=== PATIENT | female | born 1980 | race Caucasian/White ===

== ENCOUNTER 2016-11-09 08:45 | Emergency (ER) | payer BC ==
[~2016-11-09] VITALS: Ht 162.6 cm; Wt 79.0 kg
[~2016-11-09 08:45] MED LIST: LORA10CA2 PO; PRENTAB26 PO
[2016-11-09 08:47] VITALS: TEMP 36.7; Ht 162.6 cm; Wt 79.0 kg
[2016-11-09] MEDS ORDERED: IBUP200C14 PO (09:10)
[2016-11-09] MEDS ORDERED: SODIUM CHLORIDE 0.9% 1000ML 1,000 ML IV STA (09:15)
[2016-11-09] MEDS ORDERED: MoRPHine SULFATE 4 MG/ML 1 ML CARP\\VIAL IV STA (09:15)
[2016-11-09] MEDS ORDERED: ONDANSETRON INJ 2 MG/ML 2 ML VIAL IV STA (09:15)
[2016-11-09 10:00] LABS: BASO % 0.3 %; BASO ABS # 0.02 K/uL (0-0.2); COMPLETE YES; EOS % 2.4 %; HEMATOCRIT 43.4 % (37-47); IG% 0.5 %; LYMPH ABS # 1.45 K/uL (1.2-3.4); MEAN CELL VOLUME 88.9 fL (80-100); MEAN CORPUSCULAR HEMOGLOBIN 29.1 pg (25-34); MEAN CORPUSCULAR HGB CONC 32.7 g/dl (32-36); MEAN PLATELET VOLUME 10.2 fL (7.4-10.4); NEUT % 69.8 %; PLATELET COUNT 276 K/uL (130-400); RED BLOOD COUNT 4.88 M/uL (4.2-5.4)
--- NOTE | 2016-11-09 10:22 | DIAGNOSTIC IMAGING REPORT ---
HEAD CT NONCONTRAST CT DOSE: 614.27 mGy.cm HISTORY: headache TECHNIQUE: Multiaxial CT images of the head were performed without the use of intravenous contrast. Automated exposure control was utilized for this study. Comparison: None. Findings: Fluid level with near complete opacification of the left maxillary sinus. Remaining paranasal sinuses and mastoid air cells are clear. The calvarium and skull base are intact. The ventricles and sulci are within normal limits. There is no mass, hematoma, midline shift, or acute infarct. Impression: No acute intracranial abnormality. Acute left maxillary sinusitis. Electronically signed by: Fer Estes M.D. 11/09/2016 10:20 AM Dictated Date/Time: 11/09/2016 10:18 AM
[2016-11-09 10:26] LABS: POTASSIUM 4.2 mmol/L (3.5-5.1)
[2016-11-09 10:30] LABS: THYROID STIMULATING HORMONE 1.09 uIu/ml (0.300-4.500)
[2016-11-09 10:31] LABS: BUN/CREATININE RATIO 22.7 (10-20); CALCIUM 8.9 mg/dl (8.5-10.1); CREATININE 0.62 mg/dl (0.60-1.20)
[2016-11-09] MEDS ORDERED: HYDR-5688 PO (11:21)
[2016-11-09] MEDS ORDERED: AMOX500C3 PO (11:22)
[2016-11-09 11:37] VITALS: BP 129/87; PULSE 68; O2SAT 100
--- NOTE | 2016-11-10 18:10 | EMERGENCY ROOM VISIT NOTE ---
History First contact with patient: 08:52 Chief Complaint: HEADACHE Stated Complaint: HEADACHE,VOMITING History of Present Illness The patient is a 35 year old female who presents to the Emergency Room with complaints of the worst headache of her life. She states she never used to get headaches. A few years ago she started developing mild headaches. She is now getting monthly headaches. Her headache this morning woke her from sleep around 645. She denies any numbness or tingling. No neck pain. No weakness in the extremities. There was no trauma to her head. She is mildly photophobic. She denies any phonophobia. She is nauseated and vomited once this morning. She does not take anything for her headaches. She has never seen neurology. She has never been diagnosed with migraines. She is currently in the third week of her menstrual cycle. No loss of balance. No change in vision, speech, or hearing. Her accompanies her today. Her headache location is similar to previous headaches and is right-sided, frontal and occipital. Review of Systems REVIEW OF SYSTEM: HEENT: No dizziness, visual problems, hearing loss, or tinnitus. There is no difficulty swallowing and no oral lesions are present. LYMPH: No adenopathy. PULMONARY: No cough, shortness of breath, sputum production or hemoptysis. CARDIOVASCULAR: No chest pain, palpitations, shortness of breath or peripheral edema. GASTROINTESTINAL: No diarrhea, constipation, nausea, vomiting, or abdominal pain. GENITOURINARY: No dysuria, frequency, urgency or nocturia. NEUROLOGIC: No weakness, muscle tenderness, epilepsy or history of neurological problems. No history of chronic headaches. MUSCULOSKELETAL: No history of joint tenderness/swelling. No history of arthritis or arthralgias. SKIN: No rashes or lesions. PSYCHIATRIC: No history of depression or mental illness. ENDOCRINE: No history of diabetes, thyroid disorders, or abnormal hair growth. Past Medical/Surgical History Previous surgeries: None. Medical history: Significant for previous headaches. Family History Noncontributory. Social History Smoking Status: Never Smoker Smokeless Tobacco Use: No Drug Use: none Marital Status: Housing Status: lives with family Occupation Status: employed Current/Historical Medications Scheduled Ibuprofen (Advil), 600 MG PO Q6H Multivit/Min/Iron/Fol Ac/Pren ( Vitamin), 1 TAB PO DAILY Scheduled PRN Hydrocodone/Acetaminophen 5MG/325MG (Union 5MG/325MG), 1-2 TABLET PO Q6 PRN for Pain Miscellaneous Medications Loratadine (Claritin), 10 MG PO Allergies Coded Allergies: No Known Drug Allergy (Verified Allergy, Unknown, `, 11/13/16) Penicillins (Unverified Allergy, Unknown, ., 11/12/16) Physical Exam Vital Signs Date Time Temp Pulse Resp B/P (MAP) Pulse Ox O2 Delivery O2 Flow Rate FiO2 11/09/16 11:37 68 18 129/87 100 11/09/16 10:17 72 18 121/83 99 Room Air 11/09/16 08:47 36.7 78 18 135/89 97 Room Air Pain Rating (0-10): 4.0 Physical Exam Gen.: Well-developed, well-nourished, young female in obvious discomfort. No acute distress. Laying on a bed. Alert and oriented. Skin: Skin:Warm and dry with good turgor. No rashes or lesions. No ecchymosis or erythema. The patient is not diaphoretic. No abrasions. HEENT: Normocephalic atraumatic. Eyes PERRLA, EOMI. No conjunctiva or scleral injection. Ears TMs intact bilaterally with good light reflexes. No erythema or bulging. No hemotympanum. Canals are patent. Nares patent bilaterally without turbinate enlargement. No significant drainage. No epistaxis. There is some discomfort with palpation over the right-sided facial features extending into the scalp. Oropharynx without erythema or exudate. Uvula midline, oral mucosa moist. No lesions present. Lymphatics are palpated without anterior or posterior chain enlargement or tenderness. Heart: Heart RRR. No MGR. Peripheral pulses are 2+. Lungs: Lungs are clear to auscultation. No crackles rhonchi or wheezing. Good air movement. The patient is able to take a deep breath. Abdomen: Abdomen was inspected, auscultated, and palpated. Bowel sounds present x 4. Soft, nontender to palpation. No hepato-splenomegaly. Musculoskeletal: No pain with palpation over the cervical spine. Gross motor function of the upper and lower extremities is intact and unremarkable. Neurologic: Cranial nerves II through XII are intact. Gross sensation is intact across the upper and lower extremities by soft touch. Medical Decision & Procedures ER Provider Diagnostic Interpretation: CT scan imaging of the head was obtained today. This was read by radiology as negative for intracranial bleed or mass. She does have left maxillary sinusitis. Laboratory Results 11/09/16 09:39 Red Blood Count 4.88, Mean Corpuscular Volume 88.9, Mean Corpuscular Hemoglobin 29.1, Mean Corpuscular Hemoglobin Concent 32.7, Mean Platelet Volume 10.2, Neutrophils (%) (Auto) 69.8, Lymphocytes (%) (Auto) 22.0, Monocytes (%) (Auto) 5.0, Eosinophils (%) (Auto) 2.4, Basophils (%) (Auto) 0.3, Neutrophils # (Auto) 4.61, Lymphocytes # (Auto) 1.45, Monocytes # (Auto) 0.33, Eosinophils # (Auto) 0.16, Basophils # (Auto) 0.02 11/09/16 09:39 Test 11/09/16 09:39 White Blood Count 6.60 K/uL (4.8-10.8) Red Blood Count 4.88 M/uL (4.2-5.4) Hemoglobin 14.2 g/dL (12.0-16.0) Hematocrit 43.4 % (37-47) Mean Corpuscular Volume 88.9 fL (80-100) Mean Corpuscular Hemoglobin 29.1 pg (25-34) Mean Corpuscular Hemoglobin Concent 32.7 g/dl (32-36) Platelet Count 276 K/uL (130-400) Mean Platelet Volume 10.2 fL (7.4-10.4) Neutrophils (%) (Auto) 69.8 % Lymphocytes (%) (Auto) 22.0 % Monocytes (%) (Auto) 5.0 % Eosinophils (%) (Auto) 2.4 % Basophils (%) (Auto) 0.3 % Neutrophils # (Auto) 4.61 K/uL (1.4-6.5) Lymphocytes # (Auto) 1.45 K/uL (1.2-3.4) Monocytes # (Auto) 0.33 K/uL (0.11-0.59) Eosinophils # (Auto) 0.16 K/uL (0-0.5) Basophils # (Auto) 0.02 K/uL (0-0.2) RDW Standard Deviation 39.7 fL (36.4-46.3) RDW Coefficient of Variation 12.5 % (11.5-14.5) Immature Granulocyte % (Auto) 0.5 % Immature Granulocyte # (Auto) 0.03 K/uL (0.00-0.02) Anion Gap 7.0 mmol/L (3-11) Est Creatinine Clear Calc Drug Dose 131.3 ml/min Estimated GFR () 137.3 Estimated GFR (Non- 118.5 BUN/Creatinine Ratio 22.7 (10-20) Calcium Level 8.9 mg/dl (8.5-10.1) Total Bilirubin 0.5 mg/dl (0.2-1) Aspartate Amino Transf (AST/SGOT) 11 U/L (15-37) Alanine Aminotransferase (ALT/SGPT) 24 U/L (12-78) Alkaline Phosphatase 41 U/L (45-117) Total Protein 8.0 gm/dl (6.4-8.2) Albumin 3.9 gm/dl (3.4-5.0) Globulin 4.1 gm/dl (2.5-4.0) Albumin/Globulin Ratio 1.0 (0.9-2) Thyroid Stimulating Hormone (TSH) 1.090 uIu/ml (0.300-4.500) CBC, chem panel, and TSH were obtained. They're all unremarkable. Medications Administered Medications (Trade) Dose Ordered Sig/Vale Route Start Time Stop Time Status Last Admin Dose Admin Sodium Chloride 1,000 ml @ 999 mls/hr Q1H1M STAT IV 11/09/16 09:15 11/09/16 10:15 DC 11/09/16 10:05 999 MLS/HR Ondansetron HCl (Zofran Inj) 4 mg NOW STAT IV 11/09/16 09:15 11/09/16 09:18 DC 11/09/16 10:05 4 MG Morphine Sulfate (MoRPHine SULFATE INJ) 4 mg NOW STAT IV 11/09/16 09:15 11/09/16 09:18 DC 11/09/16 10:06 4 MG 1 L normal sterile saline IV bolus, morphine 4 mg IV, Zofran 4 mg IV ED Course Patient and her were educated regarding today's findings. Conservative care measures were discussed. IV was established. Labs were obtained. CT scan imaging of the head was also obtained. This was negative for intracranial bleed or mass. Left maxillary sinusitis was noted.. Patient was given 1 L normal sterile saline IV bolus for hydration, as well as morphine 4 mg IV and Zofran 4 mg IV for her headache. It did temporarily improve her symptoms. Headache did return in a moderate fashion prior to the end of her ED visit. Option of spinal tap was discussed at length with the patient and her by me as well as Dr. Trevino. They elected to decline a tap. Importance of follow-up with neurology was discussed. She should also return to the ED urgently for any worsening of symptoms, fevers, neck pain, or confusion. Patient was prescribed amoxicillin 500 mg 3 times a day 10 days for sinusitis. She listed a allergy to penicillin, but when questioned further she states it just makes her feel unusual. There is no rash, perioral swelling, or anaphylactic type reaction. I did ask her this 3 times separately throughout her visit. She reiterated the same description each time. She was also prescribed Union 5 mg to be used every 6 hours as needed for severe pain. Driving precautions were given. Patient was seen in conjunction with Dr. Trevino, who also evaluated the patient and concurred with today's diagnosis and treatment plan. Medical Decision Possibility of tension headache, cluster headache, migraine headache, intracranial bleed, and meningitis were considered, among others Impression Primary Impression: Sinusitis, acute Additional Impression: Headache Departure Information Dispostion Home / Self-Care Condition FAIR Prescriptions Hydrocodone/Acetaminophen 5MG/325MG (Union 5MG/325MG) Tab 1-2 TABLET PO Q6 Y for Pain, #12 TAB For Initial Treatment Prov: Abhay Todd,P.A. 11/09/16 Referrals Vadim Vega M.D. No Doctor, Assigned (PCP) Forms HOME CARE DOCUMENTATION FORM, SPECIAL NARCOTICS INSTRUCTIONS, MOTRIN USE, TYLENOL USE, IMPORTANT VISIT INFORMATION Patient Instructions Headache Pain, My [employer] Additional Instructions Rest as able Maintain hydration Amoxil 1 pill 3 times a day 10 days Tylenol and Motrin every 6 hours as needed for discomfort Union one to 2 tablets every 6 hours as needed for more severe pain-no driving Return to the ED for any worsening of headache and consider a spinal tap Follow-up with neurology to discuss your headaches-call this week for an appointment Problem Qualifiers Primary Impression: Sinusitis, acute Sinusitis location: maxillary Recurrence: non-recurrent Qualified Codes: J01.00 - Acute maxillary sinusitis, unspecified Additional Impression: Headache Headache type: unspecified Headache chronicity pattern: acute headache Intractability: not intractable Qualified Codes: R51 - Headache
== END 2016-11-09 11:39 | disposition home or self-care (01) ==
LOC: C.EDB 08:47 → MERGE 08:47 → C.EDB 11:39
DX: J01.00 Acute maxillary sinusitis, unspecified (principal); R51 Headache

== ENCOUNTER → 2017-03-31 | Outpatient (CLI) | payer BC ==
[~2017-03-31] MED LIST changes: +GADAVIST IV PRN; +HYDR-5688 PO; +IBUP200C14 PO
--- NOTE | 2017-03-31 14:47 | DIAGNOSTIC IMAGING REPORT ---
BRAIN COMBO CLINICAL HISTORY: HEADACHE mental status change COMPARISON STUDY: No previous studies for comparison. TECHNIQUE: Utilizing a 1.5 Clari magnet and dedicated coil, multiplanar, multiecho imaging of the brain was performed pre and postcontrast administration. IV administration of 7.5 mL of Gadavist contrast was uneventful. FINDINGS: Diffusion-weighted images show no evidence for an acute ischemic event. Signal characteristics of the cerebellar as well as cerebral hemispheres are in general unremarkable. Single small focus of increased signal over the left parietal convexity. No abnormal periventricular or optic radiation signal changes. Sella and parasellar regions are unremarkable. Postcontrast images are negative for an enhancing lesion. IMPRESSION: Normal study. The above report was generated using voice recognition software. It may contain grammatical, syntax or spelling errors. Electronically signed by: Don Strange M.D. 03/31/2017 2:45 PM Dictated Date/Time: 03/31/2017 2:38 PM
== END | disposition home or self-care (01) ==
LOC: C.MRIBC 13:50
PROVIDERS: ATTEND Psychiatry & Neurology Neurology
DX: R51 Headache (principal)